=== PATIENT | male | born 1945 | race Caucasian/White ===

== ENCOUNTER → 2017-09-08 | Day surgery (SDC) | payer BC, OTHER ==
[2017-09-05 09:59] VITALS: BMI 28.5
[~2017-09-08] MED LIST: LIDOCAINE HCL/PF 2% SDV 5ML VIAL ONE; PROPOFOL 20 ML ONE
[2017-09-08 08:06] VITALS: TEMP 97.7
[2017-09-08 09:43] VITALS: BP 122/77; PULSE 64
--- NOTE | 2017-09-10 12:58 | PATH ---
Surgical Pathology Report Patient Name: ELICIA MEAD [facility]. Rec. #: [id number] /Age/Gender: 1945 (Age: 72) / M Account: [id number] Location: [facility]-ENDOSCOPY Taken: 09/08/2017 Received: 09/08/2017 Reported: 09/10/2017 Physicians: Kody Roy M.D. Specimen(s) Received A: TRANSVERSE B: LEFT COLON Clinical History Preoperative diagnosis: History of polyps Postoperative diagnosis: Polyp Final Diagnosis A. TRANSVERSE COLON, BIOPSY: TUBULAR ADENOMA. B. COLON, LEFT, BIOPSY: TUBULAR ADENOMA. Electronically Signed Kamilah Rivas M.D. Gross Description A. Received in formalin, labeled "transverse" is a aldana, irregular portion of soft tissue measuring 0.2 cm. in greatest dimension. The specimen is submitted in toto in one cassette. B. Received in formalin, labeled "left colon" is a aldana, irregular portion of soft tissue measuring 0.3 cm. in greatest dimension. The specimen is submitted in toto in one cassette. 09/09/2017 saudi09/09/2017
== END | disposition home or self-care (01) ==
LOC: FASU-ENDO 07:26
PROVIDERS: ATTEND Internal Medicine Gastroenterology
PROC: 0DBM8ZX Excision of Descending Colon, Via Natural or Artificial Opening Endoscopic, Diagnostic (ICD-10-PCS; principal; 2017-09-08 08:47)
PROC: 0DBL8ZX Excision of Transverse Colon, Via Natural or Artificial Opening Endoscopic, Diagnostic (ICD-10-PCS; 2017-09-08 08:47)
DX: Z86.010 Personal history of colon polyps (principal); K57.30 Diverticulosis of large intestine without perforation or abscess without bleeding; D12.3 Benign neoplasm of transverse colon; D12.4 Benign neoplasm of descending colon
CPT/HCPCS: 88305-TC

== ENCOUNTER 2021-07-09 09:31 | Day surgery (SDC) | payer OTHER, BC ==
[2021-07-04 10:29] VITALS: BMI 27.8
[2021-07-09 10:08] VITALS: TEMP 98.7
[2021-07-09] MEDS ORDERED: PROPOFOL 20 ML ONE (10:23)
[2021-07-09] MEDS ORDERED: LIDOCAINE HCL/PF 2% SDV 5ML VIAL ONE (10:23)
[2021-07-09 11:45] VITALS: BP 118/66; PULSE 65
== END 2021-07-09 12:45 | disposition home or self-care (01) ==
LOC: FASU-ENDO 09:31
PROVIDERS: ATTEND Internal Medicine Gastroenterology
PROC: 0DBL8ZX Excision of Transverse Colon, Via Natural or Artificial Opening Endoscopic, Diagnostic (ICD-10-PCS; 2021-07-09)
PROC: 0DBM8ZX Excision of Descending Colon, Via Natural or Artificial Opening Endoscopic, Diagnostic (ICD-10-PCS; principal; 2021-07-09 10:15)
DX: Z86.010 Personal history of colon polyps (principal); Z80.0 Family history of malignant neoplasm of digestive organs; D12.2 Benign neoplasm of ascending colon; D12.4 Benign neoplasm of descending colon; K57.30 Diverticulosis of large intestine without perforation or abscess without bleeding
CPT/HCPCS: 88305-TC